=== PATIENT | male | born 1960 | race Caucasian/White ===

== ENCOUNTER 2019-04-22 09:45 | Outpatient (CLI) | payer OTHER, SELFPAY ==
--- NOTE | 2019-04-22 14:14 | DI.RAD_ITS ---
SYMPTOM/DIAGNOSIS: FOREIGN BODY LEFT HAND: There is a 4 mm. radiopaque foreign body in the soft tissues interposed between the bases of the first and second metacarpals. There is a second, almost 2 mm. linear radiopaque foreign body seen in the soft tissues at the radial aspect of the proximal phalanx of the thumb The underlying bones appear intact and are normally mineralized. IMPRESSION: Radiopaque foreign bodies seen in the soft tissues of the thumb and between the first and second metacarpals.
== END 2019-04-22 10:05 ==
PROVIDERS: Visit Provider Physician Assistant
DX: M79.5 Residual foreign body in soft tissue (principal)
CPT/HCPCS: 73130

== ENCOUNTER 2019-05-09 08:11 | Day surgery (SDC) | payer OTHER, SELFPAY ==
[2019-05-09] MEDS: Lactated Ringers 1,000 ML 80 ML IV (09:10)
--- NOTE | 2019-05-09 09:33 | PDOC.DSDIS_ITS ---
Discharge Plan Disposition Patient Disposition: HOME Condition: Good Discharge Details Reason For Visit: Left Hand Foriegn Body Attending Provider: Greg Hankins Home Meds and New Rx's Prescriptions: New acetaminophen 500 mg tablet 500 mg PO Q6H PRN PRN (Reason: pain) Qty: 60 RF: 3 ibuprofen 600 mg tablet 600 mg PO TID PRNQty: 60 RF: 3 Discharge Instructions Stand Alone Forms: Cr [facility]io Finger Release Referrals: Greg Hankins MD [ [facility] STAFF PHYSICIAN] - Activity:: Elevate Remove Dressings/Wound Care:: 72 hours Shower/Bathe:: 72 hours Diet:: As Tolerated Discharge Orders Discharge Orders: Discharge Order (Routine); Ordered 05/09/19 Ordered By: Greg Hankins DS: Diagnosis Discharge Diagnosis (1) Metal foreign body in hand: Status: Acute
[2019-05-09] MEDS: ceFAZolin 2 GM/50 ML BAG IVPB (09:36)
[2019-05-09] MEDS: Sodium Bicarbonate 50 MEQ/50 ML VIAL (09:40)
[2019-05-09] MEDS: Lidocaine 1% Pres-Free 5 ML VIAL (09:40)
--- NOTE | 2019-05-09 11:37 | DI.RAD_ITS ---
SYMPTOM/DIAGNOSIS: FB LEFT HAND INTRAOPERATIVE IMAGES: Fluoroscopy Time: 1 min 25 sec 0.52 mGy Intraoperative images were obtained during removal of a foreign body from the left hand. On the initial study a small metallic density is identified adjacent to the base of the 2nd metacarpal. Subsequent images reveal removal of the foreign body. Please see Dr. Hankins's procedure report for further information.
--- NOTE | 2019-05-10 11:57 | ROE_ITS ---
DATE OF SURGERY: May 09, 2019 PREOPERATIVE DIAGNOSIS: Retained metallic foreign body of the left hand. POSTOPERATIVE DIAGNOSIS: Retained foreign body of left hand with arterial injury. SURGERY: Removal of foreign body from left hand, deep. SURGEON: Greg Hankins M.D. ANESTHESIA: Local. COMPLICATIONS: Likely branch of the radial artery was involved with the metallic fragment, which ble d once the metallic fragment was released. This artery was clamped and blood flow was maintained thr oughout the fingers with it being well-perfused and therefore this was tied off and cauterized. INDICATION FOR PROCEDURE: Ricardo is a 58-year-old who works with his hands. He was working on some [place] when a shard of stainless steel acted as a projectile and went into his left hand. It resided at the base of the second metacarpal. He had no signs of infection but it continued to cause pain. It caused pain with use of the hand, as well as any direct pressure over this area. He had tried to let it go but it continued to bother him, therefore he desired to have it removed. I discussed the risks of the procedure to include bleeding, infection, pain, stiffness, damage to nerves and vessels, damage to muscles and tendons. Despite these risks, he elected to proceed. PROCEDURE DESCRIPTION: Ricardo was greeted in the preoperative holding area. His identity was confirmed and the correct side was identified and marked. The consent was reviewed with the patient and celia d. The patient was taken back to the Operating Room and placed in the supine position. The left grimes d was placed out on a hand table. The left hand was prepped with ChloraPrep and draped in a standard fashion. Prophylactic antibiotics in the form of Cefazolin were given. A time-out was performed fo r safe surgery. The proposed site of surgery was identified. A large field block was administered with 1% Lidocaine. Once appropriate anesthesia had been set up, a longitudinal incision was made overlying the radial border of the second metacarpal where the mass was palpable to the patient. This dissection was kowalski ied down sharply through the skin. There were some superficial branches of vessels in this area whic h were resected out of the way. Deeper dissection was able to reveal the metallic fragment by palpat ion only. Dissection revealed that right in this area there was the likely branch of the radial danuta ry with associated vein. This was dissected out. Once it was fully dissected and all the tissues we re inspected, fluoroscopy was also used, as the metallic fragment was not identifiable. It was palpa ble within the tissue of the vascular bundle. X-ray once again revealed that it was within the vascu lar bundle region. Using a scissor I tried to dissect the adventitia of the vascularity. However as soon as I did, there was a notable bleeding. Immediately after this was performed the metallic frag ment was visible. The metallic object was removed. The vascular supply was clamped off on either si de, which showed a sidewall-type injury to this branch. With it clamped, I then evaluated perfusion, which showed no change in perfusion of the thumb, index finger, or the remainder of the hand. There fore, given this complex injury to the artery, this was tied off and cauterized. At this point all b leeding was controlled. All clamps were removed. There was no tourniquet used. The wound was irrig ated. The skin was closed with #4-0 Nylon. The wound was dressed with Xeroform, 4x4's, conform drekayy sing. At the end of the case all counts were correct. Post-procedure x-rays demonstrated removal of the metallic foreign body.
== END 2019-05-09 11:15 | disposition home or self-care (01) ==
PROVIDERS: Visit Provider Student in an Organized Health Care Education/Training Program
PROC: (CPT 35207; principal; 2019-05-09 10:15)
DX: S61.441A Puncture wound with foreign body of right hand, initial encounter (principal); M79.5 Residual foreign body in soft tissue; Z18.11 Retained magnetic metal fragments; S65.8 Injury of other blood vessels at wrist and hand level; M79.642 Pain in left hand; W45.8XXA Other foreign body or object entering through skin, initial encounter; Y99.0 Civilian activity done for income or pay
CPT/HCPCS: 35207; 20525; 77002; 73120; J0690